=== PATIENT | female | born 1970 | race Caucasian/White ===

== ENCOUNTER 2016-11-14 21:33 | Emergency (ER) | payer MEDICAID ==
[~2016-11-14] VITALS: Ht 172.7 cm; Wt 99.1 kg
[~2016-11-14 21:33] MED LIST: HYDR-3498 PO; IBUP-1542 PO; ORPH100T PO
[2016-11-14 21:56] VITALS: Ht 172.7 cm; Wt 99.1 kg
--- NOTE | 2016-11-15 01:13 | RADRPT ---
PROCEDURE: US Non-OB Pelvis. CLINICAL INDICATION: Vaginal bleeding for 1 month with pain. Status post left oophorectomy. TECHNIQUE: Multiple sonographic images of the pelvis were obtained utilizing a transabdominal and endovaginal technique. The images were reviewed on a PACS workstation. COMPARISON: None. FINDINGS: The uterus is visualized and measures 10.6 x 5.7 x 6.1 cm. The endometrial echo complex is normal an d measures 10 mm. There are Nabothian cysts in the cervix. The right ovary measures 3.5 x 2.0 x 2.0 cm. The left ovary is not visualized, and has been resecte d per the provided history. Blood flow is demonstrated to the right ovary. No adnexal masses are noted. There is no evidence of free fluid. IMPRESSION: 1. Normal appearance of uterus and right ovary. 2. Status post left oophorectomy. RPTAT: HTAR .Félix Christine MD, MD Date Time Electronically viewed and signed by .Félix Christine MD, on 11/15/2016 01:13 .R/
--- NOTE | 2016-11-15 01:18 | ERD ---
ER Documentation Chief Complaint Date/Time DATE: 11/15/16 TIME: 01:18 Chief Complaint vaginal bleeding x 1 month HPI This is a 45-year-old female with a history of ovarian tumor with a left oophorectomy presenting to the emergency department complaining of vaginal bleeding for 1 month. Patient states that she has mild pelvic pain. Patient states that she uses 5 pads per day. She denies any significant dizziness, nausea, chest pain or shortness of breath. Patient states that she is concerned that she had a tumor in the past. Patient states that she has not been able to follow-up with a doctor the past couple years however she is going to. She denies any fevers. Patient does admit to having very mild painful urination and frequency. ROS All systems reviewed and are negative except as per history of present illness. Medications Home Meds Active Scripts Nitrofurantoin Monohyd Macrocr* (Macrobid*) 100 Mg Capsr, 100 MG PO BID for 5 Days, CAP Prov:RICK PERSON PA-C 11/15/16 Hydrocodone Bit-Acetaminophen* ([place]*) 5-325 Mg Tab, 1 TAB PO Q6 Y for PAIN, # 10 TAB Prov:CHERRI MOULTON PA-C 04/05/16 Ibuprofen* (Motrin*) 600 Mg Tab, 600 MG PO Q6, #30 TAB Prov:CHERRI MOULTON PA-C 04/05/16 Orphenadrine Citrate (Norflex) 100 Mg Tablet.sa, 100 MG PO BID for 3 Days, TAB.SA Prov:KRISTA,MARTY C 02/18/16 Ibuprofen* (Motrin*) 600 Mg Tab, 600 MG PO Q6, #30 TAB Prov:KRISTA,MARTY C 02/18/16 Hydrocodone Bit-Acetaminophen* ([place]*) 5-325 Mg Tab, 1 TAB PO Q6 Y for PAIN, # 20 TAB Prov:KRISTA,MARTY C 02/18/16 Allergies Allergies: Coded Allergies: No Known Allergy (Unverified , 11/14/16) PMhx/Soc History of Surgery: Yes (OVARIAN TUMOR REMOVED IN 2010 IN [place]) Anesthesia Reaction: No Hx Neurological Disorder: No Hx Respiratory Disorders: No Hx Cardiac Disorders: No Hx Psychiatric Problems: No Hx Miscellaneous Medical Probl: Yes (DIEST CONTROLLED DM, RT OVARY CYST) Hx Alcohol Use: No Hx Substance Use: No Hx Tobacco Use: No Smoking Status: Never smoker Physical Exam Vitals Vital Signs Date Time Temp Pulse Resp B/P Pulse Ox O2 Delivery O2 Flow Rate FiO2 11/14/16 21:56 97.5 77 20 133/63 97 Physical Exam General: well-developed/well-nourished, in no apparent distress, non-toxic appearing HENT: NC/AT Eyes: Conjunctiva normal Neck: Supple Pulm: CTA bilaterally, normal breathing CV: Normal S1S2 GI: Soft, non-distended, normal bowel sounds, mild TTP on suprapubic region Back: No midline tenderness, no masses, No CVAT Ext: No clubbing, cyanosis, or edema Neuro: Alert and orientated Skin: intact, normal turgor Psych: Normal mood and mentation Result Diagram: 11/15/16 0100 Results 24 hrs Laboratory Tests Test 11/15/16 00:59 11/15/16 01:00 Urine Amorphous Phosphates MODERATE Urine Bacteria FEW Urine Bilirubin NEGATIVE Urine Clarity SLIGHTLY CLOUDY Urine Color LT. YELLOW Urine Glucose NEGATIVE% Urine Hemoglobin 3+ Urine Ketones TRACE Urine Leukocyte Esterase TRACE Urine Microscopic RBC 25-50/HPF Urine Microscopic WBC 2-5/HPF Urine Nitrite NEGATIVE Urine Specific [place] 1.020 Urine Squamous Epithelial Cells FEW Urine Total Protein TRACE Urine Urobilinogen 0.2 E.U./dL Urine pH 7.5 Basophils # 0.110^3/ul Basophils % 0.7% Eosinophils # 0.210^3/ul Eosinophils % 2.0% Hematocrit 38.8% Hemoglobin 13.2g/dl Lymphocytes # 4.310^3/ul Lymphocytes % 47.5% Mean Corpuscular Hemoglobin 31.2pg Mean Corpuscular Hemoglobin Concent 34.0g/dl Mean Corpuscular Volume 91.7fl Mean Platelet Volume 10.8fl Monocytes # 0.610^3/ul Monocytes % 6.5% Neutrophils # 3.910^3/ul Neutrophils % 42.9% Nucleated Red Blood Cells # 0.010^3/ul Nucleated Red Blood Cells % 0.0/100WBC Platelet Count 41889^3/UL Red Blood Count 4.2310^6/ul Red Cell Distribution Width 11.9% White Blood Count 9.010^3/ul PROCEDURE: US Non-OB Pelvis. CLINICAL INDICATION: Vaginal bleeding for 1 month with pain. Status post left oophorectomy. TECHNIQUE: Multiple sonographic images of the pelvis were obtained utilizing a transabdominal and endovaginal technique. The images were reviewed on a PACS workstation. COMPARISON: None. FINDINGS: The uterus is visualized and measures 10.6 x 5.7 x 6.1 cm. The endometrial echo complex is normal and measures 10 mm. There are Nabothian cysts in the cervix. The right ovary measures 3.5 x 2.0 x 2.0 cm. The left ovary is not visualized, and has been resected per the provided history. Blood flow is demonstrated to the right ovary. No adnexal masses are noted. There is no evidence of free fluid. IMPRESSION: 1. Normal appearance of uterus and right ovary. 2. Status post left oophorectomy. RPTAT: HTAR .Félix Christine MD, MD Date Time Electronically viewed and signed by .Félix Christine MD, MD on 11/15/2016 01:13 .R/ CC: RICK PERSON. JAKE Procedures/[facility] This is a 45-year-old female with a history of ovarian tumor with a left oophorectomy presenting to the emergency department complaining of vaginal bleeding with mild pelvic pain for 1 month. On examination patient had very stable vital signs. She appeared well in no acute distress. Her abdominal examination is unremarkable. Lab work was drawn, patient did not have any evidence of anemia. Urinalysis that showed trace leukocyte esterase with 2-5 white blood cell count with patient mild symptoms of dysuria, patient will be empirically treated with Macrobid. Urine test is negative. Pelvic ultrasound did not show any evidence of any fibroids or masses. I have discussed the patient to follow-up with an [facility]PER[facility] on Thursday. I discussed return to the emergency department for any worsening signs or symptoms. Patient is hematuria stable for discharge with precautions to return. Patient understands and agrees with this plan Pelvic ultrasound: 1. Normal appearance of uterus and right ovary. 2. Status post left oophorectomy. Departure Diagnosis: Primary Impression: Dysuria Additional Impression: Excessive vaginal bleeding Condition: Stable RICK PERSON PA-C Nov 15, 2016 01:18
[2016-11-15 01:36] LABS: ADD SCAN DIFF NO
[2016-11-15 01:47] LABS: ADD UMIC YES; URINE BILIRUBIN (Dip) NEGATIVE (NEGATIVE); URINE BLOOD (Dip) 3+ (NEGATIVE); URINE COLOR LT. YELLOW (YELLOW); URINE GLUCOSE (Dip) NEGATIVE (NEGATIVE); URINE KETONES (Dip) TRACE (NEGATIVE); URINE LEUKOCYTE ESTERASE (Dip) TRACE (NEGATIVE); URINE NITRITE (Dip) NEGATIVE (NEGATIVE); URINE TOTAL PROTEIN (Dip) TRACE (NEGATIVE); URINE UROBILINOGEN (Dip) 0.2 E.U./dL (0.1-1.0)
[2016-11-15 01:47] LABS: BASOPHIL # 0.1 10^3/ul (0.0-0.1); BASOPHILS % 0.7 % (0.0-2.0); EOSINOPHILS # 0.2 10^3/ul (0.0-0.5); HEMATOCRIT 38.8 % (37.0-47.0); HEMOGLOBIN 13.2 g/dl (12.0-16.0); LYMPHOCYTES # 4.3 10^3/ul (0.8-2.9); LYMPHOCYTES % 47.5 % (15.0-51.0); MEAN CORPUSCULAR HEMOGLOBIN 31.2 pg (29.0-33.0); MEAN CORPUSCULAR VOLUME 91.7 fl (82.0-101.0); MEAN PLATELET VOLUME 10.8 fl (7.4-10.4); MONOCYTE # 0.6 10^3/ul (0.3-0.9); MONOCYTES % 6.5 % (0.0-11.0); NEUTROPHIL # 3.9 10^3/ul (1.6-7.5); NEUTROPHILS % 42.9 % (39.0-77.0); PLATELET COUNT 281 10^3/UL (140-415); RED BLOOD COUNT 4.23 10^6/ul (4.20-5.40); RED CELL DISTRIBUTION WIDTH 11.9 % (11.5-14.5)
[2016-11-15 01:57] LABS: BACTERIA,URINE FEW; SQUAMOUS EPITHELIAL CELL,UR FEW; URINE RBCS 25-50 /HPF (0)
[2016-11-15] MEDS ORDERED: NITR-58 PO (01:59)
[2016-11-15 02:08] VITALS: BP 130/62; PULSE 71; RESP 18; TEMP 97.7
== END 2016-11-15 02:08 | disposition home or self-care (01) ==
LOC: FTE 21:33
DX: R30.0 Dysuria (principal); E11.9 Type 2 diabetes mellitus without complications; R10.2 Pelvic and perineal pain
CPT/HCPCS: 76830; 76856; 81001; 85025; 86850; 86900; 86901; Z7502; 81003

== ENCOUNTER 2017-05-12 21:36 | Emergency (ER) | payer MEDICAID ==
[~2017-05-12] VITALS: Ht 160 cm; Wt 102.0 kg
[~2017-05-12 21:36] MED LIST changes: +NITR-58 PO
[2017-05-12 21:42] VITALS: Ht 160 cm; Wt 102.0 kg
[2017-05-12] MEDS ORDERED: ACETAMINOPHEN 325 MG TAB PO ONE (22:30)
[2017-05-12] MEDS ORDERED: AMO500 PO (22:41)
[2017-05-12] MEDS ORDERED: IBUP-1542 PO (22:41)
--- NOTE | 2017-05-12 22:46 | ERD ---
ER Documentation Chief Complaint Date/Time DATE: 05/12/17 TIME: 22:43 Chief Complaint sore throat w/ fever x 2 days, both knee pain, back pain HPI 46-year-old female presents here in emergency department for complaints of sore throat fever bodyaches joint pains for 2 days. Patient describes the pain as throbbing pain, 6/10 scale, is worse upon swallowing. Patient also has body aches with this. Patient also started to have fever in the last 2 days. Patient took [id number] ibuprofen and took a pill of amoxicillin from her mother today to help with symptoms. Patient does not have any stridor or shortness of breath. Patient does not have any dizziness. Patient denies any flank pain. Patient denies any trauma on joints. ROS All systems reviewed and are negative except as per history of present illness. Medications Home Meds Active Scripts Ibuprofen* (Motrin*) 600 Mg Tab, 600 MG PO Q6H Y for PAIN AND OR ELEVATED TEMP, #30 TAB Prov:TEVIN ESTRELLA NP 05/12/17 Amoxicillin* (Amoxicillin*) 500 Mg Cap, 500 MG PO TID for 10 Days, CAP Prov:TEVIN ESTRELLA NP 05/12/17 Nitrofurantoin Monohyd Macrocr* (Macrobid*) 100 Mg Capsr, 100 MG PO BID for 5 Days, CAP Prov:RICK PERSON PA-C 11/15/16 Hydrocodone Bit-Acetaminophen* ([place]*) 5-325 Mg Tab, 1 TAB PO Q6 Y for PAIN, # 10 TAB Prov:CHERRI MOULTONC 04/05/16 Ibuprofen* (Motrin*) 600 Mg Tab, 600 MG PO Q6, #30 TAB Prov:CHERRI MOULTON-C 04/05/16 Orphenadrine Citrate (Norflex) 100 Mg Tablet.sa, 100 MG PO BID for 3 Days, TAB.SA Prov:MARTY VELASCO 02/18/16 Ibuprofen* (Motrin*) 600 Mg Tab, 600 MG PO Q6, #30 TAB Prov:MARTY VELASCO 02/18/16 Hydrocodone Bit-Acetaminophen* ([place]*) 5-325 Mg Tab, 1 TAB PO Q6 Y for PAIN, # 20 TAB Prov:MARTY VELASCO 02/18/16 Allergies Allergies: Coded Allergies: No Known Allergy (Unverified , 11/14/16) PMhx/Soc History of Surgery: Yes (OVARIAN TUMOR REMOVED IN 2010 IN [place]) Anesthesia Reaction: No Hx Neurological Disorder: No Hx Respiratory Disorders: No Hx Cardiac Disorders: No Hx Psychiatric Problems: No Hx Miscellaneous Medical Probl: Yes (DIEST CONTROLLED DM, RT OVARY CYST) Hx Alcohol Use: No Hx Substance Use: No Hx Tobacco Use: No Smoking Status: Never smoker FmHx Family History: No coronary disease, No diabetes, No other Physical Exam Vitals Vital Signs Date Time Temp Pulse Resp B/P Pulse Ox O2 Delivery O2 Flow Rate FiO2 05/12/17 21:42 98.2 94 20 109/70 98 Physical Exam GENERAL: The patient is well developed and appropriate for usual state of health, in no apparent distress. HEENT: Atraumatic. Ears: Normal tympanic membrane, no erythema or bulging. No ear canal swelling. No ear discharge. Nose: normal nasal turbinates, no erythema or swelling. Normal nasal discharge. Throat: oropharynx erythematous with + tonsillar swelling and tonsillar exudates noted.. No lymphadenopathy. CHEST: Clear to auscultation bilaterally. There are no rales, wheezes or rhonchi. HEART: Regular rate and rhythm. No murmurs, clicks, rubs or gallops. No S3 or S4. ABDOMEN: Soft, nontender and nondistended. Good bowel sounds. No rebound or guarding. No gross peritonitis. No gross organomegaly or masses. No Greenfield sign or McBurney point tenderness. BACK: No midline or flank tenderness. EXTREMITIES: Equal pulses bilaterally. There is no peripheral clubbing, cyanosis or edema. No focal swelling or erythema. Full range of motion. Grossly neurovascularly intact. NEURO: Alert and oriented. Cranial nerves 2-12 intact. Motor strength in all 4 extremities with 5/5 strength. Sensation grossly intact. Normal speech and gait. SKIN: There is no apparent rash or petechia. The skin is warm and dry. HEMATOLOGIC AND LYMPHATIC: There is no evidence of excessive bruising or lymphedema. No gross cervical, axillary, or inguinal lymphadenopathy. Results 24 hrs Current Medications Medications (Trade) Dose Ordered Sig/Zena Route PRN Reason Start Time Stop Time Status Last Admin Dose Admin Acetaminophen (Tylenol Tab) 650 mg ONCE ONCE PO 05/12/17 22:30 05/12/17 22:31 DC Patient was given medication for pain here in emergency department, after treatment, patient verbalized feeling much better. Patient's pain is improved. Procedures/MDM Medical decision making: Patient symptoms is likely consistent with acute bacterial pharyngitis, most likely strep throat. Low suspicion for peritonsillar abscess, mononucleosis, no symptoms of epiglottitis, laryngitis. No oral airway obstruction noted. No symptoms of sepsis at this time. Patient appears well and is hemodynamically stable. Patient was given for amoxicillin, ibuprofen, is advised to follow-up with primary care doctor in 2-3 days for reevaluation of symptoms. Patient is advised to do salt water gargles. Patient is advised to return to emergency department for worsening symptoms. Disposition: Home. Stable. Departure Diagnosis: Primary Impression: Acute bacterial pharyngitis Condition: Stable Patient Instructions: Pharyngitis, Strep (Presumed) TEVIN ESTRELLA NP May 12, 2017 22:46
[2017-05-12 22:52] VITALS: BP 110/85; PULSE 82; RESP 18; TEMP 98.6
== END 2017-05-12 22:55 | disposition home or self-care (01) ==
LOC: FTE 21:36
DX: J02.9 Acute pharyngitis, unspecified (principal)
CPT/HCPCS: Z7502; Z7610; 99283

== ENCOUNTER 2017-10-03 18:58 | Emergency (ER) | END 2017-10-04 00:18 | disposition home or self-care (01) ==